=== PATIENT | male | born 1990 | race African-American/Black ===

== ENCOUNTER 2017-01-27 10:57 | Emergency (ER) | payer OTHER ==
[~2017-01-27] VITALS: Ht 170.2 cm; Wt 92.9 kg
[~2017-01-27 10:57] MED LIST: BACTRIM,SEPT1 TABLET PO; FIORICET 50-301 EACH PO; NAPROSYN500 MG PO; NAPROXEN500 MG PO; TRAMADOL HCL50 MG PO
[2017-01-27] MEDS ORDERED: TESSALON200 MG PO (13:30)
[2017-01-27] MEDS ORDERED: ROBITUSSIN NIG237 ML PO (13:30)
[2017-01-27] MEDS ORDERED: GUAIFENESIN600 M1 PO (13:30)
[2017-01-27] MEDS ORDERED: AMOXICILLIN500 MG PO (13:30)
[2017-01-27] MEDS ORDERED: FLONASE16 G1 BOTH NARES (13:30)
[2017-01-27] MEDS ORDERED: ZYRTEC10 M2 PO (13:30)
[2017-01-27 13:39] VITALS: BP 116/82
== END 2017-01-27 13:40 | disposition home or self-care (01) ==
LOC: EME 10:57
DX: H66.92 Otitis media, unspecified, left ear (principal); J30.2 Other seasonal allergic rhinitis; R05 Cough; Z72.0 Tobacco use
CPT/HCPCS: 99281; 99283